=== PATIENT | male | born 1960 | race Two or more races ===

== ENCOUNTER 2016-03-19 03:42 | Inpatient (IN) | payer OTHER ==
[~2016-03-19] VITALS: Ht 172.7 cm; Wt 89.8 kg
[~2016-03-19 03:42] MED LIST: NAPR220C4 PO
[2016-03-19] MEDS ORDERED: FENTANYL PF 100 MCG/2 ML VIAL. IV PRN ×3 (04:15→11:30)
[2016-03-19] MEDS ORDERED: KETOROLAC 15 MG/ML VIAL. IV ONE (04:30)
[2016-03-19] MEDS ORDERED: ONDANSETRON PF 4 MG/2 ML VIAL. IV ONE (04:30)
[2016-03-19] MEDS ORDERED: IV NORMAL SALINE 1000ML BAG 1,000 ML IV SCH (04:30)
[2016-03-19 04:43] LABS: BASO # 0.1 x10^3/uL (0.0-0.2); BASO % 1 % (0-3); EOS % 2 % (0-3); HEMATOCRIT 43.4 % (39.0-53.0); HEMOGLOBIN 14.5 g/dL (13.0-17.5); LYMPH # 1.9 x10^3/uL (1.0-4.8); LYMPH % 10 % (24-48); MEAN CORPUSCULAR HEMOGLOBIN 30 pg (25-35); MEAN CORPUSCULAR HGB CONC 34 g/dL (31-37); MEAN CORPUSCULAR VOLUME 90 fL (79-100); MONO % 5 % (0-9); NEUT % 83 % (31-73); PLATELET COUNT 324 x10^3/uL (140-400); RED BLOOD COUNT 4.84 x10^6/uL (4.30-5.70); RED CELL DISTRIBUTION WIDTH 12.7 % (11.5-14.5); WHITE BLOOD COUNT 18.7 x10^3/uL (4.0-11.0)
[2016-03-19 04:46] LABS: BILIRUBIN,URINE LARGE (NEG); GLUCOSE,URINE NEGATIVE (NEG); NITRITE,URINE POSITIVE (NEG); PH,URINE 5.5; PROTEIN,URINE 100 mg/dL (NEG-TRACE); UROBILINOGEN,URINE 0.2 mg/dL (0.2 mg/dL)
[2016-03-19 04:54] LABS: ANION GAP 12 (6-14); BLOOD UREA NITROGEN 12 mg/dL (8-26); BUN/CREATININE RATIO 17 (6-20); CARBON DIOXIDE 27 mmol/L (21-32); CHLORIDE 98 mmol/L (98-107); CREATININE 0.7 mg/dL (0.7-1.3); GLUCOSE 168 mg/dL (70-99); POTASSIUM 3.4 mmol/L (3.5-5.1); SODIUM 137 mmol/L (136-145)
[2016-03-19 05:00] LABS: ALBUMIN 4.1 g/dL (3.4-5.0); ALBUMIN/GLOBULIN RATIO 1.1 (1.0-1.7); ALK PHOS 79 U/L (46-116); ALT (SGPT) 24 U/L (16-63); TOTAL BILIRUBIN 0.6 mg/dL (0.2-1.0); TOTAL PROTEIN 7.9 g/dL (6.4-8.2)
[2016-03-19 05:15] LABS: AST (SGOT) < 5 U/L (15-37)
[2016-03-19 05:16] LABS: BACTERIA,URINE FEW /HPF (0-FEW); RBC,URINE TNTC /HPF (0-2); SQUAMOUS EPITHELIAL CELL,UR FEW /LPF; WBC,URINE TNTC /HPF (0-4)
--- NOTE | 2016-03-19 05:20 | ED.ADGEN ---
Past Medical History Past Medical History: Other Additional Past Medical Histor: gastritis, fevers Past Surgical History: No Surgical History Alcohol Use: Sober Drug Use: None Adult General Chief Complaint Chief Complaint: ABDOMINAL PAIN HPI HPI Patient is a 55 year old man, primarily Iranian speaking, who presents to the emergency department with a complaint of left flank pain, radiating to his left lower quadrant, associated with dysuria that began yesterday, with hematuria that began earlier today. Patient denies similar to previously, denies fevers, complaining of chills today, with nausea, no vomiting, no injuries. Denies weakness emesis or tingling, any shortness of breath. Has not taken any medications prior to coming to the ED. Review of Systems Review of Systems Constitutional: Denies fever or chills. [] Eyes: Denies change in visual acuity. [] HENT: Denies nasal congestion or sore throat. [] Respiratory: Denies cough or shortness of breath. [] Cardiovascular: Denies chest pain or edema. [] GI: Left flank and left lower quadrant abdominal pain, nausea, no vomiting, no bloody stools or diarrhea. Associated with hematuria today, began with dysuria yesterday. : Dysuria and hematuria. Musculoskeletal: Denies back pain or joint pain. [] Integument: Denies rash. [] Neurologic: Denies headache, focal weakness or sensory changes. [] Endocrine: Denies polyuria or polydipsia. [] Lymphatic: Denies swollen glands. [] Psychiatric: Denies depression or anxiety. [] Current Medications Current Medications Current Medications Medications (Trade) Dose Ordered Sig/Arely Start Time Stop Time Status Last Admin Dose Admin Fentanyl Citrate 25 mcg 25 mcg PRN Q15MIN PRN 03/19/16 04:15 03/20/16 04:14 03/19/16 04:16 25 MCG Ketorolac Tromethamine (Toradol) 10 mg 1X ONCE 03/19/16 04:30 03/19/16 04:31 DC 03/19/16 04:16 10 MG Ondansetron HCl (Zofran) 4 mg 1X ONCE 03/19/16 04:30 03/19/16 04:31 DC 03/19/16 04:16 4 MG Sodium Chloride (Iv Sodium Chloride 0.9% 1000ml Bag) 1,000 ml @ 1,000 mls/hr Q1H 03/19/16 04:30 03/19/16 05:29 DC 03/19/16 04:17 1,000 MLS/HR Allergies Allergies Allergies Coded Allergies Type Severity Reaction Last Updated Verified No Known Drug Allergies 12/05/13 No Physical Exam Physical Exam Constitutional: Well developed, well nourished, no acute distress, non-toxic appearance. [] HENT: Normocephalic, atraumatic, bilateral external ears normal, oropharynx moist, no oral exudates, nose normal. [] Eyes: PERRLA, EOMI, conjunctiva normal, no discharge. [] Neck: Normal range of motion, no tenderness, supple, no stridor. [] Cardiovascular:Heart rate regular rhythm, no murmur, S1, S2, no rubs or gallops. [] Lungs & Thorax: Bilateral breath sounds clear to auscultation, no wheezing, rhonchi, rales. No chest wall tenderness or crepitus. [] Abdomen: Bowel sounds normal, soft, tenderness palpation in the left lower quadrant, no rebound, rigidity, no guarding no masses, no pulsatile masses. [] Skin: Warm, dry, no erythema, no rash. [] Back: No tenderness, positive for left CVA tenderness. [] Extremities: No tenderness, no cyanosis, no clubbing, ROM intact, no edema. [] Neurologic: Alert and oriented X 3, normal motor function, normal sensory function, no focal deficits noted. [] Psychologic: Affect normal, judgement normal, mood normal. [] Current Patient Data Vital Signs Vital Signs Date Time Temp Pulse Resp B/P Pulse Ox O2 Delivery O2 Flow Rate FiO2 03/19/16 05:10 76 124/67 93 Room Air 03/19/16 04:16 20 03/19/16 03:48 98.3 98.3 Lab Values Laboratory Tests Test 03/19/16 04:00 White Blood Count 18.7x10^3/uL (4.0-11.0) H Red Blood Count 4.84x10^6/uL (4.30-5.70) Hemoglobin 14.5g/dL (13.0-17.5) Hematocrit 43.4% (39.0-53.0) Mean Corpuscular Volume 90fL (79-100) Mean Corpuscular Hemoglobin 30pg (25-35) Mean Corpuscular Hemoglobin Concent 34g/dL (31-37) Red Cell Distribution Width 12.7% (11.5-14.5) Platelet Count 324x10^3/uL (140-400) Neutrophils (%) (Auto) 83% (31-73) H Lymphocytes (%) (Auto) 10% (24-48) L Monocytes (%) (Auto) 5% (0-9) Eosinophils (%) (Auto) 2% (0-3) Basophils (%) (Auto) 1% (0-3) Neutrophils # (Auto) 15.5x10^3uL (1.8-7.7) H Lymphocytes # (Auto) 1.9x10^3/uL (1.0-4.8) Monocytes # (Auto) 1.0x10^3/uL (0.0-1.1) Eosinophils # (Auto) 0.3x10^3/uL (0.0-0.7) Basophils # (Auto) 0.1x10^3/uL (0.0-0.2) Segmented Neutrophils % 82% (35-66) H Band Neutrophils % 4% (0-9) Lymphocytes % 8% (24-48) L Monocytes % 3% (0-10) Eosinophils % 3% (0-5) Platelet Estimate Adequate (ADEQUATE) Urine Collection Type Unknown Urine Color Red Urine Clarity Cloudy Urine pH 5.5 Urine Specific Dickinson <=1.005 Urine Protein 100mg/dL (NEG-TRACE) Urine Glucose (UA) Negativemg/dL (NEG) Urine Ketones (Stick) 15mg/dL (NEG) Urine Blood Large (NEG) Urine Nitrite Positive (NEG) Urine Bilirubin Large (NEG) Urine Urobilinogen Dipstick 0.2mg/dL (0.2 mg/dL) Urine Leukocyte Esterase Large (NEG) Urine RBC Tntc/HPF (0-2) Urine WBC Tntc/HPF (0-4) Urine Squamous Epithelial Cells Few/LPF Urine Bacteria Few/HPF (0-FEW) Urine Mucus Slight/LPF Sodium Level 137mmol/L (136-145) Potassium Level 3.4mmol/L (3.5-5.1) L Chloride Level 98mmol/L (98-107) Carbon Dioxide Level 27mmol/L (21-32) Anion Gap 12 (6-14) Blood Urea Nitrogen 12mg/dL (8-26) Creatinine 0.7mg/dL (0.7-1.3) Estimated GFR (Cockcroft-Gault) 118.0 BUN/Creatinine Ratio 17 (6-20) Glucose Level 168mg/dL (70-99) H Calcium Level 9.0mg/dL (8.5-10.1) Total Bilirubin 0.6mg/dL (0.2-1.0) Aspartate Amino Transferase (AST) < 5U/L (15-37) L Alanine Aminotransferase (ALT) 24U/L (16-63) Alkaline Phosphatase 79U/L (46-116) Total Protein 7.9g/dL (6.4-8.2) Albumin 4.1g/dL (3.4-5.0) Albumin/Globulin Ratio 1.1 (1.0-1.7) Laboratory Tests 03/19/16 04:00 Laboratory Tests 03/19/16 04:00 EKG EKG ECG: Rhythm strip: Sinus rhythm, heart rate 76 bpm, no ectopy. As interpreted by me. [] Radiology/Procedures Radiology/Procedures [] [facility] [address] [place], [place] [id number] IMAGING REPORT Signed PATIENT: JORGE RAMSEY ACCOUNT: [id number] : 1960 LOCATION: ER AGE: 55 SEX: M EXAM STATUS: REG ER ORD. PHYSICIAN: OZZIE NICOLE DO REASON: bilateral flank pain/hematuria x 1 day PROCEDURE: ABDOMEN PELVIS WO CONTRAST INDICATION: Abdomen pain. COMPARISON: None TECHNIQUE: Axial CT images obtained through the abdomen and pelvis. Intravenous contrast was not utilized. One or more of the following individualized dose reduction techniques were utilized for this examination: 1. Automated exposure control; 2. Adjustment of the mA and/or kV according to patient size; 3. Use of iterative reconstruction technique. FINDINGS: Mild bronchiectasis at lung bases with linear opacities. Could be atelectasis Abdominal aorta not aneurysmal. No intrahepatic bile duct dilation. No peripancreatic edema. Spleen unremarkable. No hydronephrosis. No definite evidence of small bowel obstruction. Bladder with adjacent edema. Mild prominence of wall Small fat containing inguinal hernias. Colonic diverticulosis. No definite periappendiceal inflammation. Degenerative changes spine. IMPRESSION: Mild suspected edema adjacent to bladder with prominence of wall. Correlate for possible causes such as cystitis. No hydronephrosis. Mild T8 compression deformity of unknown age Electronically signed by: Allny Hernandez (Mar 19, 2016 05:17:15) DICTATED and SIGNED BY: ALLYN HERNANDEZ MD DATE: 03/19/16516 CC: OZZIE NICOLE DO; YADI WELCH MD ~ Course & Med Decision Making Course & Med Decision Making Pertinent Labs and Imaging studies reviewed. (See chart for details) Patient with bright red blood in urine, received IV analgesia, fluids, antiemetics. CT obtained to further elucidate symptoms, along with laboratory studies. CT reveals evidence of edema of the bladder wall, consistent with cystitis, no evidence of obstruction or calculi identified. Diagnosis of hemorrhagic cystitis. Due to severity of symptoms, patient agreeable for admission to the hospital for evaluation with urology. Above discussed with Dr. Connors of urology, who will be able to see the patient tomorrow morning, at this time requested through a catheter replaced and irrigation of the bladder be performed. We'll continue IV antibiotics and repeat laboratory studies. Findings as above discussed with Dr. Tesfaye, on-call for the patient's primary care provider, patient accepted to his service as a full admission with bridging orders completed at his request for consultation with urology, continued IV hydration and symptom management. Patient remained stable in the emergency department, awaiting transfer to the floor. Dragon Disclaimer Dragon Disclaimer This electronic medical record was generated, in whole or in part, using a voice recognition dictation system. Departure Impression: Primary Impression: Hemorrhagic cystitis Disposition: ADMITTED INPATIENT Admitting Physician: Nabil Tesfaye Condition: IMPROVED OZZIE NICOLE DO Mar 19, 2016 05:19
[2016-03-19] MEDS ORDERED: CEFTRIAXONE 1GM IVPB FOR OMNI 50 ML IV ONE (06:00)
[2016-03-19 06:38] LABS: % EOS 3 % (0-5); PLT ESTIMATE ADEQUATE (ADEQUATE)
[2016-03-19] MEDS ORDERED: ACETAMINOPHEN 325 MG TABLET. PO PRN (07:15)
[2016-03-19] MEDS ORDERED: ONDANSETRON PF 4 MG/2 ML VIAL. IV PRN ×2 (07:15→11:30)
--- NOTE | 2016-03-19 10:45 | PDOC ---
Provider Note Provider Note See admission H&P dictation #[id number] Impression: 1. Hemorrhagic cystitis: 2. Probable urinary tract infection: 3. Mild hypokalemia: 4. Diabetes mellitus type 2: 5. Bilateral small inguinal hernias containing fat on CT scan: 6. Diverticulosis on CT scan: 7. Atelectasis on CT scan: History and exam accomplished through the use of the phone head filter tank tender helper service. MIKEY FREED MD Mar 19, 2016 10:45
[2016-03-19 11:00] VITALS: BP 118/63
[2016-03-19] MEDS ORDERED: DEXTROSE 50% 25 GM / 50ML DISP.SYRIN. IV PRN (11:30)
[2016-03-19] MEDS ORDERED: ACETAMINOPHEN 650 MG/20.3 ML SOLUTION. PEG PRN (11:30)
[2016-03-19] MEDS ORDERED: POTASSIUM CHLORIDE 20 MEQ TABLET.ER. PO ONE (11:30)
[2016-03-19] MEDS: INSULIN ASPART 300 UNITS/3 ML INSULN.PEN SQ SCH ×2 (12:00→17:00)
[2016-03-19 12:17] LABS: BASO # 0.1 x10^3/uL (0.0-0.2); BASO % 1 % (0-3); EOS % 1 % (0-3); HEMATOCRIT 40.5 % (39.0-53.0); HEMOGLOBIN 13.8 g/dL (13.0-17.5); LYMPH # 1.8 x10^3/uL (1.0-4.8); LYMPH % 12 % (24-48); MEAN CORPUSCULAR HEMOGLOBIN 30 pg (25-35); MEAN CORPUSCULAR HGB CONC 34 g/dL (31-37); MEAN CORPUSCULAR VOLUME 89 fL (79-100); MONO % 6 % (0-9); NEUT % 80 % (31-73); PLATELET COUNT 268 x10^3/uL (140-400); RED BLOOD COUNT 4.54 x10^6/uL (4.30-5.70); RED CELL DISTRIBUTION WIDTH 12.6 % (11.5-14.5); WHITE BLOOD COUNT 14.8 x10^3/uL (4.0-11.0)
[2016-03-19 12:28] LABS: CALCIUM 8.8 mg/dL (8.5-10.1); CREATININE 0.8 mg/dL (0.7-1.3); GFR 101.1; POTASSIUM 3.6 mmol/L (3.5-5.1)
[2016-03-19] MEDS: IV NORMAL SALINE 1000ML BAG 1,000 ML IV SCH ×3 (12:39→23:03)
--- NOTE | 2016-03-19 13:01 | HP ---
ADMIT DATE: 03/19/2016 ATTENDING PHYSICIAN: Mikey Freed M.D. CHIEF COMPLAINT: Hematuria. HISTORY OF PRESENT ILLNESS: The patient is a 55-year-old male who had the onset of burning discomfort 2 days prior to admission and on the night of admission, he had a significant amount of blood with urination. This has continued with his urination. He did state that he had a low grade fever. He has had one other episode of this in the past that was . It is uncertain if he had any significant workup at that time. He is also complaining of some left-sided flank pain that has come with the discomfort with urination and blood. He has been able to eat and drink. He denies any constipation, but has had a couple of loose stools. He has been breathing okay. He denies any significant cough. He does have a mild headache. PAST MEDICAL HISTORY: Significant for post-concussion syndrome and then it also appears that he has been on medication for diabetes in the past, although he does not relate a known history of diabetes. PAST SURGICAL HISTORY: He denies any prior surgeries. SOCIAL HISTORY: He denies any tobacco or alcohol use. ALLERGIES TO MEDICATIONS: No known drug allergies. MEDICATIONS: At the time of admission, he denies any medication use other than what has received in the hospital Emergency Room. REVIEW OF SYSTEMS: Review of systems is somewhat limited by communication, although we did use the phone chief medical physicist system at the hospital to get the history and during the exam. He denies any fevers. He does have a mild headache. He has been swallowing without difficulty. Denies any emesis. He has a little bit of chest discomfort, but denies any significant pain. The chest discomfort is mostly with take a deep breath. He denies any shortness of breath. He has not had any significant cough. He normally is urinating okay. He denies any lower extremity swelling. He denies any focal paresthesia or weakness. PHYSICAL EXAMINATION: VITAL SIGNS: At the time of admission, temperature 98.3, pulse 65, respiratory rate 20, blood pressure 145/92, O2 sat 97% on room air. GENERAL: The patient is alert and appears to be oriented. He is mildly ill appearing. He is able to use the phone surgical first assistant without any difficulty. HEENT: The pupils are equal and round. Sclerae are anicteric. Oropharynx is moist. NECK: Without JVD or bruit. There is no thyromegaly. CHEST: Clear to auscultation bilaterally except slightly decreased at the bases. CARDIOVASCULAR: The heart has a regular rate and rhythm without any murmur. ABDOMEN: Positive bowel sounds, soft, nondistended. Minimal tenderness, more in the left lower quadrant and suprapubic area. No guarding or rebound. EXTREMITIES: There is no edema. NEUROLOGIC: Grossly intact and nonfocal. PSYCHIATRIC: He appears to be answering the questions without any difficulty, although psychiatric evaluation is somewhat limited by language barrier. LABORATORY DATA: At the time of admission in WBC 18.7, hemoglobin 14.5, hematocrit 43.4, platelets 324. UA shows specific gravity of less than 1.005 with 15 ketones, large blood, positive nitrite, large bilirubin, large leukocyte esterase, too numerous to count red blood cells, too numerous to count white blood cells, few epithelial cells, few bacteria, slight mucus. Sodium 137, potassium 3.4, chloride 98, CO2 of 27, BUN 12, creatinine 0.7, glucose 168, total bilirubin 0.6. LFTs are within normal limits. Albumin 4.1. He did undergo a CT scan of the abdomen which showed mild bronchiectasis with linear opacities which could also be atelectasis. There was a bladder with adjacent edema and mild prominence of the wall. There are small fat containing inguinal hernias. There is colonic diverticulosis without any signs of periappendiceal inflammation or diverticulitis, although IV contrast was not used. IMPRESSION: 1. Hemorrhagic cystitis. 2. Probable urinary tract infection. 3. Mild hypokalemia. 4. Diabetes mellitus type 2. 5. Bilateral small inguinal hernias containing fat on the CT scan. 6. Diverticulosis on CT scan without any definite diverticulitis. PLAN: The patient is admitted. He is placed on empiric IV antibiotics. Urology has been consulted. Further workup with cystitis will be based on their recommendations. We will check a hemoglobin A1c. We will see how his blood sugars are and use sliding scale insulin. We will also obtain a chest x-ray and encourage incentive spirometry use to help with the atelectasis. Further treatment will be based on how he does with these interventions. MIKEY FREED MD DR: Chidi JOB#: [id number] / [id number]
[2016-03-19 15:00] VITALS: BP 110/61
[2016-03-19 15:12] VITALS: BP 118/63
[2016-03-19] MEDS: HYDROCODONE/APAP 5/325MG TABLET. PO PRN ×2 (16:32→20:54)
[2016-03-19 19:00] VITALS: BP 118/60
[2016-03-19 23:40] VITALS: BP 108/59
[2016-03-20 03:35] VITALS: BP 113/58
[2016-03-20 04:49] LABS: BASO # 0.1 x10^3/uL (0.0-0.2); BASO % 1 % (0-3); EOS % 2 % (0-3); HEMATOCRIT 39.1 % (39.0-53.0); HEMOGLOBIN 13.4 g/dL (13.0-17.5); LYMPH # 2.1 x10^3/uL (1.0-4.8); LYMPH % 16 % (24-48); MEAN CORPUSCULAR HEMOGLOBIN 30 pg (25-35); MEAN CORPUSCULAR HGB CONC 34 g/dL (31-37); MEAN CORPUSCULAR VOLUME 89 fL (79-100); MONO % 7 % (0-9); NEUT % 75 % (31-73); PLATELET COUNT 263 x10^3/uL (140-400); RED BLOOD COUNT 4.42 x10^6/uL (4.30-5.70); WHITE BLOOD COUNT 13.7 x10^3/uL (4.0-11.0)
[2016-03-20 04:54] LABS: CALCIUM 8.7 mg/dL (8.5-10.1); CREATININE 0.8 mg/dL (0.7-1.3); GFR 101.1; POTASSIUM 3.8 mmol/L (3.5-5.1)
[2016-03-20] MEDS: HYDROCODONE/APAP 5/325MG TABLET. PO PRN ×2 (05:57→10:28)
[2016-03-20] MEDS ORDERED: CEFTRIAXONE SODIUM 1 GM in IV NORMAL SALINE 50ML 50 ML IV SCH (06:00)
[2016-03-20 07:00] VITALS: BP 108/70
[2016-03-20] MEDS: INSULIN ASPART 300 UNITS/3 ML INSULN.PEN SQ SCH ×2 (08:00→11:58)
[2016-03-20 11:00] VITALS: BP 116/70
--- NOTE | 2016-03-20 11:57 | DISCH ---
DISCHARGE INSTRUCTIONS Condition on Discharge Condition on Discharge: Stable Activity After Discharge Activity Instructions for Disc: Activity as tolerated Diet after Discharge Diet after Discharge: Diabetic No Calorie Level Contacting the DR. after DC Call your doctor for: If your condition worsens Follow-Up Follow up with: Dr Mascorro in one week, call for appt Follow Up With: Dr Connors in 2 weeks MIKEY FREED MD Mar 20, 2016 11:57
[2016-03-20] MEDS ORDERED: HYDR-2666 PO (12:00)
[2016-03-20] MEDS ORDERED: CIPR500T94 PO (12:00)
--- NOTE | 2016-03-20 12:10 | PDOC ---
Provider Note Provider Note See discharge summary dictation #[id number] Case discussed with Dr. Connors prior to discharge with a plan for outpatient cystoscopy probably in about 2 weeks. Plan was discussed with the patient as well using the hospital phone translation service. MIKEY FREED MD Mar 20, 2016 12:10
--- NOTE | 2016-03-20 21:51 | DS ---
DATE OF DISCHARGE: 03/20/2016 ATTENDING PHYSICIAN: Dr. Mikey Freed CHIEF COMPLAINT: Hematuria. HISTORY OF PRESENT ILLNESS: The patient is a 55-year-old male who had the onset of burning discomfort approximately 2 days prior to admission and then on the night of admission, he had a significant amount of blood with urination and that continued for several more urinations. He did state that he had a low-grade fever as well. He had had one episode of this in the past year. He is having some left-sided flank pain and discomfort with hematuria. HOSPITAL COURSE: The patient was admitted. He was placed on IV Rocephin empirically. The urine culture is pending at the time of discharge. A CT scan showed some mild suspected edema adjacent to the bladder with prominence of the wall. There was no hydronephrosis. There is a mild T8 compression deformity of unknown age. He did consider doing bladder irrigation, but he was urinating well and he continued to do so during the hospitalization. He did not have any further hematuria on the day prior to discharge. The case was discussed with Dr. Connors, Urology and it was decided that the patient could go home on oral antibiotics for 10 days with a followup for outpatient cystoscopy and biopsies in approximately 2 weeks. At the time of discharge, the patient had decreased left abdomen/side pain. He was taking his diet without any difficulty. He was voiding blood without any urine. PHYSICAL EXAMINATION: VITAL SIGNS: He was afebrile. His vital signs were stable. GENERAL: His blood sugars were minimally elevated. Hemoglobin A1c is pending at the time of discharge. He was alert, in no distress. CHEST: Clear to auscultation. HEART: Had a regular rate and rhythm. ABDOMEN: Had minimal tenderness in the left lower quadrant without any guarding or rebound. EXTREMITIES: Without edema. LABORATORY DATA: At the time of discharge, WBC decreased from 18.7 to 13.7, hemoglobin was 13.4, platelets 263. UA showed specific gravity of less than 1.005. Protein was 100, ketones 15, blood large, nitrite positive, bilirubin large, leukocyte esterase large, WBCs too numerous to count, RBCs too numerous to count, epithelial cells, few bacteria, few mucus ____. Creatinine was 0.8, potassium 3.8, blood sugars range from 130s to 160s. CT of the abdomen and pelvis was as noted above. DISCHARGE DIAGNOSES: 1. Hemorrhagic cystitis. 2. Probable urinary tract infection with urine culture currently pending. 3. Mild hypokalemia which improved with replacement. 4. Diabetes mellitus type 2. 5. Bilateral small inguinal hernias containing fat on the CT scan. 6. Diverticulosis noted on the CT scan without any evidence of diverticulitis. 7. Mild atelectasis noted on the CT scan. DISCHARGE DIET: Diabetic diet. DISCHARGE ACTIVITIES: As tolerated. FOLLOWUP: The patient is to follow up with Dr. Mascorro in 1 week. He is to follow up with Dr. Connors, Urology in 2 weeks for probable outpatient cystoscopy. MEDICATIONS AT THE TIME OF DISCHARGE: Include Cipro 500 mg p.o. b.i.d. x 10 days and [place] 5/325 one pill p.o. q. 4 hours p.r.n. pain. MIKEY FREED MD DR: NICHOLAS/portillo JOB#: [id number] / [id number]
--- NOTE | 2016-03-21 00:39 | CONS ---
DATE OF CONSULTATION: 03/20/2016 CHIEF COMPLAINT: Gross hematuria, urinary tract infection. HISTORY OF PRESENT ILLNESS: A 55-year-old male, French speaking, presented to the Emergency Room with complaint of left flank pain and dysuria. He noted gross hematuria the day of admission. There is no previous history of kidney stones. The patient's urinalysis suggested urinary tract infection. PAST MEDICAL HISTORY: Significant for gastritis. PAST SURGICAL HISTORY: No major abdominal surgery. ALLERGIES: No known drug allergies. REVIEW OF SYSTEMS: Unremarkable. PHYSICAL EXAMINATION: GENERAL DESCRIPTION: A 55-year-old male, French speaking, has less pain and discomfort today. His urine was clear. ABDOMEN: Soft, nontender. No suprapubic tenderness. RECTAL: Not performed today. EXTREMITIES: Negative for cyanosis or edema. LABORATORY STUDIES: On admission, the patient's white blood cell count is 18.7. Today, his white blood cell count is 13.7, hemoglobin 13.4, hematocrit 39.1, platelet count is adequate. The patient's electrolytes are normal. His creatinine is 0.8, BUN is 11. Glucose slightly elevated at 146. Urinalysis on admission, grossly bloody, cloudy, positive nitrites, large bilirubin, large leukocytes. Urine culture is still pending. X-RAY STUDIES: Noncontrast CT scan of the abdomen and pelvis was performed. The kidneys were normal. There was no evidence of hydronephrosis. Negative for kidney tumors. The ureters were normal. The bladder demonstrated some mild edema with prominence of the wall of the bladder which the radiologist suspects cystitis. IMPRESSION: 1. Gross hematuria -- resolved. 2. Urinary tract infection. PLAN: I discussed the case with Dr. Tesfaye. Plans will be to send him home on antibiotic therapy. He is going to follow up in my office in about 2 weeks. I think he should undergo cystoscopy and bladder biopsies on an outpatient basis to complete this workup. Thank you for the opportunity to participate in the care of this patient. FLORENTIN FUENTES DO DR: TON/portillo JOB#: [id number] / [id number]
== END 2016-03-20 13:25 | disposition home or self-care (01) | DRG 690 ==
LOC: ER 04:28 → 5 SOUTH 05:27
PROVIDERS: ADMIT Family Medicine; ATTEND Family Medicine
DX: N30.91 Cystitis, unspecified with hematuria (principal); J98.11 Atelectasis; K57.90 Diverticulosis of intestine, part unspecified, without perforation or abscess without bleeding; K40.20 Bilateral inguinal hernia, without obstruction or gangrene, not specified as recurrent; E11.9 Type 2 diabetes mellitus without complications; E87.6 Hypokalemia; F07.81 Postconcussional syndrome
CPT/HCPCS: 36415; 74176; 80048; 80053; 81001; 82947; 83036; 85007; 85027; 87086; 96365; 96367; 96375; J0690; J0696; J1815; J1885; J2405; J3010; J7030; 99285-25

== ENCOUNTER 2019-11-04 18:56 | Emergency (ER) | payer SELFPAY ==
[~2019-11-04] VITALS: Ht 172.7 cm; Wt 84.0 kg
[~2019-11-04 18:56] MED LIST changes: +CIPR500T94 PO; +HYDR-2761 PO
[2019-11-04 19:24] VITALS: BP 125/81
[2019-11-04] MEDS ORDERED: HYDROcodone/APAP 5/325MG 1 TAB TABLET PO ONE (19:30)
--- NOTE | 2019-11-04 20:17 | RAD ---
Left elbow x-rays 3 views HISTORY: Left elbow pain after a fall. FINDINGS: No abnormal elevation of the fat pads to suggest a joint effusion. Osteoarthritis with bone spurring of the joint. No fracture or dislocation evident. The AP film somewhat oblique limiting assessment for malalignment and subtle fractures. IMPRESSION: No acute osseous injury. Osteoarthritis. Electronically signed by: Phillip Tafoya MD (11/04/2019 8:15 PM) [facility]
--- NOTE | 2019-11-04 21:01 | RAD ---
CT left elbow without contrast PQRS statement: CT scans at this facility use dose reduction including either automated exposure control, iterative reconstructions, and /or weight based radiation dosing via mA and kV modification when appropriate to reduce radiation dose to as low as reasonably achievable. HISTORY: Left elbow pain after a fall. Limited range of motion. COMPARISON: March x-rays November 04, 2019. FINDINGS: Joint effusion is noted. No acute fracture. No dislocation. There is osteoarthritis with joint space narrowing and bulky joint spurs present. There is a 1 cm chronic ossicle along the lateral joint posterior of the radial capitellum articulation which could be an osseous loose body or heterotopic ossification due to chronic tendinopathy or an old ligament injury. There are smaller subcentimeter ossicles surrounding the joint elsewhere. Soft tissue edema subcutaneous tissues overlying the ulna olecranon. IMPRESSION: 1. No acute osseous injury. 2. Advanced osteoarthritis. 3. Joint effusion and small osseous loose bodies and/or periarticular foci of mature heterotopic ossification. 4. Posterior elbow soft tissue edema. Electronically signed by: Phillip Tafoya MD (11/04/2019 8:58 PM) [facility]
[2019-11-04] MEDS ORDERED: IBUP-1007 PO (21:17)
--- NOTE | 2019-11-04 21:17 | PHYS DOC ---
Past Medical History Past Medical History: Other Additional Past Medical Histor: gastritis, fevers Past Surgical History: No Surgical History Smoking Status: Never Smoker Alcohol Use: Sober Drug Use: None General Adult EDM: Chief Complaint: MECHANICAL FALL HPI: HPI: The history was obtained from the patient. Patient is a 59-year-old male with no reported PMH who presents with a chief complaint of left elbow pain. Patient is a right-handed individual. He states earlier this afternoon he experienced mechanical fall. States he was walking and tripped. He states he fell on his left elbow. He states he is had limitations in his range of motion of his left elbow due to pain. Is not tried anything prior to arrival. Denies any shoulder or wrist pain. States he did not strike his head or lose consciousness. States it is somewhat difficult to pronate his arm. Does note some associated swelling. No other complaints. Review of Systems: Review of Systems: Constitutional: Denies fever or chills. [] Eyes: Denies change in visual acuity. [] HENT: Denies nasal congestion or sore throat. [] Respiratory: Denies cough or shortness of breath. [] Cardiovascular: Denies chest pain or edema. [] GI: Denies abdominal pain, nausea, vomiting, bloody stools or diarrhea. [] : Denies dysuria. [] Musculoskeletal: Positive for fall and left elbow pain Integument: Denies rash. [] Neurologic: Denies headache, focal weakness or sensory changes. [] Endocrine: Denies polyuria or polydipsia. [] Lymphatic: Denies swollen glands. [] Psychiatric: Denies depression or anxiety. [] Heart Score: Risk Factors: Risk Factors: DM, Current or recent (<one month) smoker, HTN, HLP, family history of CAD, obesity. Risk Scores: Score 0 - 3: 2.5% MACE over next 6 weeks - Discharge Home Score 4 - 6: 20.3% MACE over next 6 weeks - Admit for Clinical Observation Score 7 - 10: 72.7% MACE over next 6 weeks - Early Invasive Strategies Current Medications: Current Medications Medications (Trade) Dose Ordered Sig/Arely Start Time Stop Time Status Last Admin Dose Admin Acetaminophen/ Hydrocodone Bitart (Lortab 5/325) 1 tab 1X ONCE 11/04/19 19:30 11/04/19 19:45 DC 11/04/19 19:49 1 TAB Allergies: Allergies: Allergies Coded Allergies Type Severity Reaction Last Updated Verified No Known Drug Allergies 12/05/13 No Physical Exam: PE: Constitutional: Well developed, well nourished, no acute distress, non-toxic appearance. [] HENT: Normocephalic, atraumatic, bilateral external ears normal, oropharynx moist, no oral exudates, nose normal. [] Eyes: PERRLA, EOMI, conjunctiva normal, no discharge. [] Neck: Normal range of motion, no tenderness, supple, no stridor. [] Cardiovascular:Heart rate regular rhythm, no murmur [] Lungs & Thorax: Bilateral breath sounds clear to auscultation [] Abdomen: soft, no tenderness, no masses, no pulsatile masses. [] Skin: Warm, dry, no erythema, no rash. [] Back: No tenderness, no CVA tenderness. [] Extremities: L SHOULDER: Clavicle pain is not present. Humerus pain is not present. Scapula without tenderness. Theres no obvious joint or bony deformity. ROM of the joints without ligamentous laxity. Pain is present with ROM. Radial head is non-tender. No overlying erythema. Left elbow with mild posterior swelling. Tenderness palpation over the olecranon. Pronation slightly limited due to pain. Patient intact throughout. Cardinal hand movements intact. +2-4 radial pulse on the left. Extension and flexion intact. Neurologic: Alert and oriented X 3, normal motor function, normal sensory function, no focal deficits noted. [] Psychologic: Affect normal, judgement normal, mood normal. [] Current Patient Data: Vital Signs: Vital Signs Date Time Temp Pulse Resp B/P (MAP) Pulse Ox O2 Delivery O2 Flow Rate FiO2 11/04/19 19:24 99.1 88 18 125/81 (96 93 Room Air 99.1 EKG: EKG: [] Radiology/Procedures: Radiology/Procedures: [][facility] [address] [place] [address] IMAGING REPORT Signed PATIENT: JORGE RAMSEYACCOUNT: [id number] : 1960 LOCATION: ER AGE: 59 SEX: M EXAM STATUS: REG ER ORD. PHYSICIAN: ROCK LOPEZ DO REASON: L elbow pain s/p fall. limied ROM. concern for occult fx PROCEDURE: CT UPPR EXTREMTY WO CONTRST LT CT left elbow without contrast PQRS statement: CT scans at this facility use dose reduction including either automated exposure control, iterative reconstructions, and /or weight based radiation dosing via mA and kV modification when appropriate to reduce radiation dose to as low as reasonably achievable. HISTORY: Left elbow pain after a fall. Limited range of motion. COMPARISON: March x-rays November 04, 2019. FINDINGS: Joint effusion is noted. No acute fracture. No dislocation. There is osteoarthritis with joint space narrowing and bulky joint spurs present. There is a 1 cm chronic ossicle along the lateral joint posterior of the radial capitellum articulation which could be an osseous loose body or heterotopic ossification due to chronic tendinopathy or an old ligament injury. There are smaller subcentimeter ossicles surrounding the joint elsewhere. Soft tissue edema subcutaneous tissues overlying the ulna olecranon. IMPRESSION: 1. No acute osseous injury. 2. Advanced osteoarthritis. 3. Joint effusion and small osseous loose bodies and/or periarticular foci of mature heterotopic ossification. 4. Posterior elbow soft tissue edema. Electronically signed by: Mo Tafoya MD (11/04/2019 8:58 PM) [facility] [place]CTATED and SIGNED BY: MO TAFOYA MD DATE: 11/04/192057 Course & Med Decision Making: Course & Med Decision Making Pertinent Labs and Imaging studies reviewed. (See chart for details) [] Patient is a 59-year-old male who presents with chief complaint of left elbow pain status post fall. Plain film imaging reveals no acute osseous abnormality . Given the patient did have some limitation in pronation I did feel CT imaging is indicated to evaluate for occult fracture. This is grossly abnormal. Arthritic changes are noted. Slight joint effusion appreciated. Patient is appropriate for discharge home. He was given supportive care measures. He was given a sling for comfort but was explicitly stated not to use a sling e xclusively as this could result in further stiffness and limitations in range of motion. He expressed understanding peer return precautions discussed and understood. Instructed to follow-up with his primary care physician in the next 2 to 3 days. Stable for discharge. Drag[place]y Disclaimer: Miguelangel Disclaimer: This electronic medical record was generated, in whole or in part, using a voice recognition dictation system. Departure Departure Impression: Primary Impression: Left elbow pain Additional Impression: Fall Qualified Codes: W19.XXXA - Unspecified fall, initial encounter Disposition: HOME, SELF-CARE Condition: STABLE Referrals: YADI WELCH MD (PCP) Patient Instructions: Elbow Contusion Additional Instructions: Please follow-up with your primary care physician on next 2 to 3 days. Scripts Ibuprofen (IBUPROFEN) 600 Mg Tablet 600 MG PO PRN Q6HRS PRN for PAIN, #20 TAB take with food or milk Prov: ROCK LOPEZ DO 11/04/19 Justicifation of Admission Dx: Justifications for Admission: Justification of Admission Dx: N/A ROCK LOPEZ DO Nov 04, 2019 21:17
== END 2019-11-04 21:50 | disposition home or self-care (01) ==
LOC: ER 18:56
DX: M25.522 Pain in left elbow (principal); G89.11 Acute pain due to trauma; M54.2 Cervicalgia; M25.512 Pain in left shoulder; W01.0XXA Fall on same level from slipping, tripping and stumbling without subsequent striking against object, initial encounter; Y93.01 Activity, walking, marching and hiking; Y92.89 Other specified places as the place of occurrence of the external cause; Y99.8 Other external cause status
CPT/HCPCS: 73080; 73200; 99284